=== PATIENT | male | born 1970 | race Caucasian/White ===

== ENCOUNTER 2018-10-20 07:17 | Emergency (ER) | payer BC ==
[~2018-10-20] VITALS: Ht 182.9 cm; Wt 113.5 kg
[2018-10-20] MEDS ORDERED: IBUPROFEN 600 MG TAB PO ONE (08:00)
--- NOTE | 2018-10-20 08:53 | Diagnostic Imaging Report ---
EXAM: ANKLE 3 + VIEWS RIGHT, FOOT RIGHT COMPLETE DATE: 10/20/2018 7:44 AM INDICATION: Fall COMPARISON: None FINDINGS: Right ankle: There is no evidence for acute fracture or dislocation. The ankle mortise is maintained. No focal lytic or blastic abnormality is identified. No radiopaque foreign body is appreciated. Right foot: There is no evidence for acute fracture or dislocation. No focal lytic or blastic abnormalities identified. Mild calcaneal spurring noted. No radiopaque foreign body is appreciated. IMPRESSION: No acute radiographic abnormality identified within the right foot or ankle. Signed by: Dr. Abdelrahman Carnes MD on 10/20/2018 8:50 AM
== END 2018-10-20 09:25 | disposition home or self-care (01) ==
LOC: ER 07:17
DX: M25.571 Pain in right ankle and joints of right foot (principal); S93.431A Sprain of tibiofibular ligament of right ankle, initial encounter; X50.1XXA Overexertion from prolonged static or awkward postures, initial encounter; Y92.89 Other specified places as the place of occurrence of the external cause
CPT/HCPCS: 99283